=== PATIENT | male | born 1955 | race African-American/Black ===

== ENCOUNTER 2018-05-20 08:25 | Day surgery (SDC) | payer OTHER, MEDICAID ==
[~2018-05-20 08:25] MED LIST: BUPIVACAINE 0.25% (MPF) 30 ML INJ; CEFAZOLIN 2 GM/50 ML (PMX) 50 ML IVPB; EPHEDrine SULFATE 50 MG/5 ML SYG
[2018-05-20] MEDS ORDERED: MEPERIDINE 25 MG INJ IV (09:00)
[2018-05-20] MEDS ORDERED: DIPHENHYDRAMINE 50 MG INJ IV (09:00)
[2018-05-20] MEDS ORDERED: HYDROmorphONE 1 MG/5 ML IV SYRINGE IV ×3 (09:00)
[2018-05-20] MEDS ORDERED: hydrALAzine 20 MG INJ IV (09:00)
[2018-05-20] MEDS ORDERED: LABETALOL HCL 20MG INJ IV (09:00)
[2018-05-20] MEDS ORDERED: OXYCODONE/ACETAMINOPHEN (5/325) TAB PO (09:00)
[2018-05-20] MEDS ORDERED: ONDANSETRON 4 MG INJ IV (09:00)
[2018-05-20] MEDS ORDERED: FENTAnyl 50 MCG/ML VIAL IV (09:00)
[2018-05-20] MEDS ORDERED: PROCHLORPERAZINE 10 MG INJ IV (09:00)
[2018-05-20] MEDS: SOD CHLORIDE 0.9% 1,000 ML IV (09:09)
[2018-05-20] MEDS ORDERED: MIDAZOLAM 1 MG/ML 2 ML INJ (10:20)
[2018-05-20] MEDS ORDERED: PROPOFOL 20 ML (10:22)
[2018-05-20] MEDS ORDERED: SUCCINYLCHOLINE CHLORIDE 100 MG/5 ML SYG IV (10:22)
[2018-05-20] MEDS ORDERED: LIDOCAINE 2% (SDV) 5 ML INJ (10:22)
[2018-05-20] MEDS ORDERED: ROCURONIUM 50 MG INJ (10:22)
[2018-05-20] MEDS ORDERED: ONDANSETRON 4 MG INJ (10:34)
[2018-05-20] MEDS ORDERED: CEFAZOLIN 1 GM INJ (10:34)
[2018-05-20] MEDS ORDERED: DEXAMETHASONE 4 MG/ML 1 ML INJ (10:34)
[2018-05-20] MEDS: BUPIVACAINE 0.25% (MPF) 30 ML INJ INJ ×2 (10:42)
[2018-05-20] MEDS ORDERED: HYDROCODONE/APAP (5/325) TAB PO (11:00)
== END 2018-05-20 12:15 | disposition home or self-care (01) ==
LOC: SDS 08:25
DX: D17.0 Benign lipomatous neoplasm of skin and subcutaneous tissue of head, face and neck (principal); E78.5 Hyperlipidemia, unspecified; E66.9 Obesity, unspecified; Z68.32 Body mass index [BMI] 32.0-32.9, adult; I12.9 Hypertensive chronic kidney disease with stage 1 through stage 4 chronic kidney disease, or unspecified chronic kidney disease; N18.3 Chronic kidney disease, stage 3 (moderate)
CPT/HCPCS: 14041; 88307